=== PATIENT | male | born 1990 | race Caucasian/White ===

== ENCOUNTER 2017-03-03 17:20 | Emergency (ER) | payer OTHER ==
[2017-03-03 17:27] VITALS: O2SAT 96
[2017-03-03 17:28] VITALS: TEMP 98.6
--- NOTE | 2017-03-03 17:32 | EDPHY ---
H & P Stated Complaint: L ant CP with deep breaths and sob worse with exertion HPI/ROS: CHIEF COMPLAINT: Chest pain HISTORY OF PRESENT ILLNESS: This patient is a 26 year old male arriving with his mother complaining of left anterior chest pain and shortness of breath associated with exertion onset two days ago. Two weeks ago, he was jogging and developed shooting pain on the underside of his left arm and started sweating. He felt short of breath and very lightheaded. This episode lasted about 45 minutes. He felt he had an abnormal pulse with four distinct beats rather than two, and was concerned he might be having a heart attack. He has no personal history of cardiac disease. His father had similar symptoms in his 30s but was never evaluated by a physician. The patient was evaluated by his primary care provider, but did not have blood work or EKG done at that time due to insurance difficulties. He is scheduled for an echocardiogram on Tuesday and treadmill test on Tuesday. The last two days, he has been feeling lightheaded and had shortness of breath and pain just below his left collarbone with any exertion. Has been cold for the last four days even in a sweatshirt under blankets. He denies pain or swelling in his legs or calves. No recent travel. No family history of blood clots. No abdominal pain, vomiting, diarrhea, urinary complaints, or other associated symptoms. REVIEW OF SYSTEMS: A ten point review of systems was performed and is negative with the exception of the items mentioned in the HPI. Past medical history: Denies Past surgical history: Denies. Family history: Noncontributory Social history: Student studying mythology and biology. Single. Lives in [place]. No tobacco or alcohol use. General Appearance: Alert. Vital signs reviewed. Blood pressure 135/89. Other vital signs normal at triage. Eyes: Pupils equal and round, no conjunctival injection, no discharge. Anicteric. ENT, Mouth: Mucous membranes are moist, no oropharyngeal erythema or edema. Neck: No lymphadenopathy, supple. Respiratory: Lungs are clear to auscultation; no wheezes, rales, or rhonchi. Cardiovascular: Regular rate and rhythm; no murmur, rub, or gallop. Gastrointestinal: Abdomen is soft and nontender, no masses or organomegaly, bowel sounds normal. Skin: Warm and dry, no rashes on exposed skin, normal color. Back: Nontender to palpation over the thoracolumbar spine. No CVAT. Extremities: No lower extremity edema, no calf tenderness or swelling. Neurological: Alert and oriented. Moving all four extremities easily and equally. Psychiatric: Normal affect. - Personal History Current Tetanus/Diphtheria Vaccine: Unsure Current Tetanus Diphtheria and Acellular Pertussis (TDAP): Unsure - Medical/Surgical History Hx Asthma: No Hx Chronic Respiratory Disease: No Hx Diabetes: No Hx Cardiac Disease: No Hx Renal Disease: No Hx Cirrhosis: No Hx Alcoholism: No Hx HIV/AIDS: No Hx Splenectomy or Spleen Trauma: No Other PMH: denies - Social History Smoking Status: Never smoked Constitutional: Initial Vital Signs Temperature (C) 37.0 C 03/03/17 17:24 Heart Rate 71 03/03/17 17:24 Respiratory Rate 18 03/03/17 17:24 Blood Pressure 135/89 H 03/03/17 17:24 O2 Sat (%) 96 03/03/17 17:24 O2 Delivery Mode Room Air Allergies/Adverse Reactions: Unable to Assess Allergy (Verified 03/03/17 17:22) Home Medications: Medication Instructions Recorded NK [No Known Home Meds] 03/03/17 Medical Decision Making - Diagnostics EKG Interpretation: 12 lead EKG is interpreted in Trace master View by emergency department physician. No acute ischemic changes. Imaging: I viewed and interpreted images myself ED Course/Re-evaluation: 26 y/o male presents with two day history of lightheadedness, shortness of breath, and pain just below his left collarbone associated with exertion. Physical exam is unremarkable, lungs are clear to auscultation bilaterally, regular cardiac rate and rhythm. Plan for labs including CBC, BMP, Troponin, D- dimer. Plan for chest x-ray. Plan for EKG. EKG is negative for ischemic processes. Chest x-ray is negative for acute processes. No pneumonia or pneumothorax. Lab work is within normal limits, troponin and d-dimer negative. ACS unlikely in this setting. I do not suspect PE with negative PERC, negative d-dimer. No signs of pericarditis. Likely musculoskeletal. Plan to discharge home in good condition. He will follow up for continued cardiac testing next week as scheduled. Follow up and return precautions discussed. The patient and his mother are comfortable with this plan. Etiology of his pain remains unclear, he is aware of this. I have not found evidence of a life threat. - Data Points Laboratory Results: Laboratory Results 03/03/17 17:56 03/03/17 17:56 Departure - Departure Disposition: Home, Routine, Self-Care Clinical Impression: Chest pain Qualifiers: Chest pain type: other chest pain Qualified Code(s): R07.89 - Other chest pain ; R07.8 - Other chest pain Condition: Good Instructions: Chest Pain (ED) Additional Instructions: I have not found an explanation for your chest pain. Your chest x-ray is normal with no sign of pneumonia or lung collapse. Your blood work is normal. Continue with the tests as arranged by Dr. Qureshi. Referrals: Hannah Qureshi MD [Primary Care Provider] - As per Instructions Report Scribed for: Gerri Arboleda Report Scribed by: Nicky Guerrero Date of Report: 03/03/17 Time of Report: 17:32 Physician Review and Approval Statement: 03/03/17 17:31 Portions of this note were transcribed by the phlebotomist medical lab assistant. I, Dr. Gerri Arboleda, personally performed the history, physical exam, and medical decision- making; and confirmed the accuracy of the information in the transcribed note.
--- NOTE | 2017-03-03 17:48 | CPEKG ---
Heart Rate: 66 RR Interval: 909 P-R Interval: 156 QRSD Interval: 96 QT Interval: 388 QTC Interval: 407 P Murphys: 50 QRS Murphys: 11 T Wave Murphys: 31 EKG Severity - NORMAL ECG - EKG Impression: SINUS RHYTHM Electronically Signed By: Gerri Arboleda 03-Mar-2017 21:58:21
[2017-03-03 18:10] LABS: % IMMATURE GRANULYOCYTES 0.3 % (0.0-1.1); ABSOLUTE IMMATURE GRANULOCYTES 0.02 10^3/uL (0.00-0.10); ADD DIFF? NO; ADD MORPH? NO; ADD SCAN? NO; ATYPICAL LYMPHOCYTE FLAG 0 (0-99); FRAGMENT RBC FLAG 10 (0-99); HEMATOCRIT 46.9 % (40.0-51.0); HEMOGLOBIN 16.7 g/dL (13.7-17.5); LEFT SHIFT FLG 0 (0-99); LIPEMIA HEMOLYSIS FLAG 90 (0-99); MEAN CELL HEMOGLOBIN 30.6 pg (27.9-34.1); MEAN CELL HEMOGLOBIN CONCENTR. 35.6 g/dL (32.4-36.7); MEAN CELL VOLUME 86.1 fL (81.5-99.8); MEAN PLATELET VOLUME 9.1 fL (8.7-11.7); PLATELET CLUMPS FLAG 0 (0-99); PLATELET COUNT 236 10^3/uL (150-400); RED BLOOD CELL COUNT 5.45 10^6/uL (4.40-6.38)
[2017-03-03 18:18] LABS: ANION GAP 14 mEq/L (8-16); CALCIUM 9.4 mg/dL (8.5-10.4); CARBON DIOXIDE 23 mEq/l (22-31); CHLORIDE 104 mEq/L (97-110); CREATININE 0.9 mg/dL (0.7-1.3); GLOMERULAR FILTRATION RATE > 60; GLUCOSE 87 mg/dL (70-100); SODIUM 141 mEq/L (134-144)
[2017-03-03 18:29] LABS: TROPONIN I < 0.012 ng/mL (0.000-0.034)
[2017-03-03 19:13] VITALS: BP 121/73; PULSE 72; RESP 20
== END 2017-03-03 19:11 | disposition home or self-care (01) ==
DX: R07.89 Other chest pain (principal)